=== PATIENT | male | born 1985 | race African-American/Black ===

== ENCOUNTER 2025-07-03 13:36 | Emergency (ER) | payer OTHER, MEDICAID ==
[~2025-07-03] VITALS: Ht 162.6 cm; Wt 127.0 kg
[2025-07-03 13:38] VITALS: O2SAT 96
[2025-07-03] MEDS: LIDOCAINE 5% PATCH TOP STA (15:00)
[2025-07-03] MEDS: KETOROLAC 30MG/ML VIAL IM ONE (15:00)
[2025-07-03] MEDS: CYCLOBENZAPRINE 10MG TABLET PO ONE (15:00)
[2025-07-03] MEDS ORDERED: CYCL10TA21 MT (16:24)
[2025-07-03] MEDS ORDERED: IBUP-1455 MT (16:24)
[2025-07-03] MEDS ORDERED: LIDO700A30 TP (16:24)
[2025-07-03 16:37] VITALS: BP 129/78; PULSE 81; RESP 16; TEMP 37; O2SAT 96
== END 2025-07-03 16:45 | disposition home or self-care (01) ==
LOC: ER 13:36
DX: M54.2 Cervicalgia (principal); M54.50 Low back pain, unspecified; E11.9 Type 2 diabetes mellitus without complications; V43.62XA Car passenger injured in collision with other type car in traffic accident, initial encounter; Y93.89 Activity, other specified; Y92.410 Unspecified street and highway as the place of occurrence of the external cause; Y99.8 Other external cause status
CPT/HCPCS: 99284; 72040; 72100; 96372; J1885